=== PATIENT | female | born 1995 | race Caucasian/White ===

== ENCOUNTER 2017-09-05 01:44 | Emergency (ER) | payer BC ==
[~2017-09-05] VITALS: Ht 167.6 cm; Wt 56.8 kg
[2017-09-05 01:47] VITALS: BP 145/103; TEMP 98.3
[2017-09-05] MEDS ORDERED: MONONESSA 35 MC1 TA1 (02:01)
[2017-09-05] MEDS ORDERED: CEPHALEXIN500 M1 PO (02:26)
[2017-09-05 02:42] VITALS: PULSE 91
== END 2017-09-05 02:42 | disposition home or self-care (01) ==
LOC: COL.ER 01:44
DX: S51.812A Laceration without foreign body of left forearm, initial encounter (principal); W25.XXXA Contact with sharp glass, initial encounter; Y92.009 Unspecified place in unspecified non-institutional (private) residence as the place of occurrence of the external cause

== ENCOUNTER 2020-03-31 12:50 | Outpatient (RCR) | payer OTHER ==
[~2020-03-31 12:50] MED LIST: CEPHALEXIN500 M1 PO; MONONESSA 35 MC1 TA1
== END 2020-06-29 | disposition home or self-care (01) ==
LOC: WSOH
DX: S16.1XXA Strain of muscle, fascia and tendon at neck level, initial encounter (principal); T75.4XXA Electrocution, initial encounter; W86.1XXA Exposure to industrial wiring, appliances and electrical machinery, initial encounter